=== PATIENT | female | born 1990 | race Caucasian/White ===

== ENCOUNTER 2016-07-23 05:24 | Outpatient (CLI) | payer SELFPAY ==
[2016-07-23 05:55] VITALS: BP 106/55
[2016-07-23] MEDS ORDERED: LACTATED RINGERS 500 ML IV ONE (06:36)
== END 2016-07-23 06:58 | disposition home or self-care (01) ==
LOC: TRG 05:24
PROVIDERS: ATTEND Obstetrics & Gynecology
DX: O62.9 Abnormality of forces of labor, unspecified (principal); Z3A.36 36 weeks gestation of pregnancy
CPT/HCPCS: 59025; J7120

== ENCOUNTER 2016-08-12 13:49 | Inpatient (IN) | payer OTHER ==
[2016-08-12] MEDS ORDERED: POLYCILLIN/NS 2 GM/100 ML 2 GM/100 ML BAG IV ONE (13:58)
[2016-08-12] MEDS ORDERED: LACTATED RINGERS 1,000 ML ONE (13:58)
[2016-08-12] MEDS ORDERED: PITOCin/NS 20 UNIT/1000ML DRIP 20,000 MILLIUNITS/1,000 ML BAG IV ONE (13:59)
[2016-08-12] MEDS ORDERED: CLEOCIN 900 MG/50 mL 900 MG/50 ML BAG IV ONE (14:04)
[2016-08-12] MEDS ORDERED: SUBLIMAZE ONE (14:28)
[2016-08-12] MEDS ORDERED: SUBLIMAZE IV ONE (14:33)
[2016-08-12 14:50] LABS: Hematocrit 40.8 % (30.3-42.9); Hemoglobin 13.9 gm/dl (10.1-14.3); Mean Corpuscular HGB Conc 34 % (30-34); Mean Corpuscular Hemoglobin 31 pg (28-32); Mean Corpuscular Volume 90 fl (79-97); Platelet Count 151 K/mm3 (140-440); Red Blood Count 4.51 M/mm3 (3.65-5.03); Red Cell Distribution Width 13.4 % (13.2-15.2); White Blood Count 10.4 K/mm3 (4.5-11.0)
[2016-08-12] MEDS ORDERED: CLEOCIN 900 MG/50 mL 900 MG/50 ML BAG IV SCH (15:00)
[2016-08-12] MEDS ORDERED: PITOCin/NS 20 UNIT/1000ML DRIP 20 UNITS/1,000 ML BAG IV SCH ×2 (15:00→17:00)
[2016-08-12] MEDS ORDERED: LACTATED RINGERS 1,000 ML IV SCH ×2 (15:00→17:00)
[2016-08-12] MEDS ORDERED: XYLOCAINE 2% INFILTRATI ONE ×2 (16:29→16:55)
[2016-08-12] MEDS ORDERED: ePHEDrine SULFATE IV PRN (16:55)
[2016-08-12] MEDS ORDERED: BRETHINE IVP PRN (16:55)
[2016-08-12] MEDS ORDERED: MINERAL OIL PO PRN (16:55)
[2016-08-12] MEDS ORDERED: BRETHINE SUB-Q PRN (16:55)
[2016-08-12] MEDS ORDERED: BENADRYL PO PRN (16:58)
[2016-08-12] MEDS ORDERED: NORCO 5/325 PO PRN (16:58)
[2016-08-12] MEDS ORDERED: PHENERGAN PR PRN (16:58)
[2016-08-12] MEDS ORDERED: TUCKS PAD TP PRN (16:58)
[2016-08-12] MEDS ORDERED: LANSINOH TP PRN (16:58)
[2016-08-12] MEDS ORDERED: DULCOLAX PR PRN (16:58)
[2016-08-12] MEDS ORDERED: MILK OF MAGNESIA PO PRN (16:58)
[2016-08-12] MEDS ORDERED: PITOCin/NS 30 UNIT/500ML 30 UNITS/500 ML BAG IV SCH (17:00)
[2016-08-12] MEDS ORDERED: SODIUM CHLORIDE FLUSH SYRINGE 10 ML IV NR (17:00)
--- NOTE | 2016-08-12 17:09 | Procedure Note ---
OB Delivery Note - Delivery Date of Delivery: 08/12/16 (1624) Surgeon: DILIP HOOKS Estimated blood loss: 200cc - Vaginal Delivery presentation: vertex Delivery position: OA Delivery induction: none Delivery augmentation: rupture of membranes Delivery monitor: external FHT, external uterine Route of delivery: Delivery placenta: spontaneous Delivery cord: nuchal cord, 3 umbilical vessels Episiotomy: none Delivery laceration: 1st degree Delivery repair: vicryl Anesthesia: local Delivery comments: of a live 7'3 female over a 1st degree labial laceration under IV pain control with Apgars of 8 and 9 at 1624 on 08/12/2016. Tight nuchal cord x 2 manually reduced on the perineum prior to delivery of the anterior shoulder. directly to maternal abd/chest, skin to skin contact. Spontaneous delivery of placenta complete and intact with Bhandari side presenting at 1634. Fundus is firm and midline located 4 below the U. Lochia is scant. Labial laceration repaired with 2-0 Vicryl under 2% Lidocaine. GBS prophylaxis x 1. Cord blood collected. - Infant A at 1 minute: 8 at 5 minutes: 9 Infant Gender: Female (7'3)
--- NOTE | 2016-08-12 17:14 | History and Physical Report ---
History of Present Illness Date of examination: 08/12/16 Date of admission: 08/12/16 13:49 Chief complaint: Intense Labor Pains History of present illness: Uncomplicated course at [facility], No care after 33 Weeks. Past History Past Medical History: no pertinent history Past Surgical History: no surgical history Family/Genetic History: diabetes (mother) Social history: no significant social history, - Obstetrical History Expected Date of Delivery: 08/16/16 Actual Gestation: 39 Week(s) 3 Day(s) : 2 Para: 1 Number of Living Children: 1 #1 Infant Gender: Male year: 2008 Birthweight: 3.317 kg Method of Delivery: Vaginal Gestational age at delivery: 37 Complications: none Medications and Allergies Allergies Allergy/AdvReac Type Severity Reaction Status Date / Time ampicillin Allergy Hives Verified 07/23/16 06:01 Home Medications Medication Instructions Recorded Confirmed Last Taken Type Pnv with Ca,No.72/Iron/FA [Pnv 10 mg PO QDAY 08/12/16 08/12/16 08/11/16 History Plus Multivit Tab] Active Meds: Active Medications Acetaminophen/Hydrocodone Bitart ([place] 5/325) 2 each PO Q6H PRN PRN Reason: Pain, Moderate (4-6) Bisacodyl (Dulcolax) 10 mg NV BID PRN PRN Reason: Constipation Diphenhydramine HCl (Benadryl) 25 mg PO Q6H PRN PRN Reason: Itching Clindamycin HCl (Cleocin 900 Mg/50 Ml) 900 mg in 50 mls @ 100 mls/hr IV Q8HR DOREEN PRN Reason: Protocol Last Admin: 08/12/16 14:20 Dose: 100 mls/hr Lactated Ringer's (Lactated Ringers) 1,000 mls @ 125 mls/hr IV DIRECT DOREEN Oxytocin/Sodium Chloride (Pitocin/Ns 20 Unit/1000ml Drip) 20 units in 1,000 mls @ 125 mls/hr IV DIRECT DOREEN Lactated Ringer's (Lactated Ringers) 1,000 mls @ 125 mls/hr IV DIRECT DOREEN Oxytocin/Sodium Chloride (Pitocin/Ns 20 Unit/1000ml Drip) 20 units in 1,000 mls @ 125 mls/hr IV DIRECT DOREEN Oxytocin/Sodium Chloride (Pitocin/Ns 30 Unit/500ml) 30 units in 500 mls @ 1 mls /hr IV TITR DOREEN; 1 MILLIUNITS/MIN PRN Reason: Protocol Ibuprofen (Motrin) 600 mg PO Q6H [facility] Influenza Virus Vaccine Quadrival (Fluarix Quad 2502-0738(36 Mos+)) 60 mcg IM .ONCE ONE Stop: 08/13/16 12:01 Magnesium Hydroxide (Milk Of Magnesia) 30 ml PO HS PRN PRN Reason: Constipation Mineral Oil (Mineral Oil) 30 ml PO QHS PRN PRN Reason: Constipation Multi-Ingredient Ointment (Lansinoh) 1 applic TP PRN PRN PRN Reason: Sore Nipples Multivitamins/Iron/Calcium ( Vitamin) 1 each PO QDAY [facility] Promethazine HCl (Phenergan) 25 mg NV Q6H PRN PRN Reason: Nausea And Vomiting Sodium Chloride (Sodium Chloride Flush Syringe 10 Ml) 10 ml IV PRN NR Stop: 08/13/16 16:59 [place]/Glycerin (Tucks Pad) 1 each TP PRN PRN PRN Reason: Hemorrhoid/cleansing/soothing - Vital Signs Vital signs: Vital Signs Pulse Pulse Ox 78 97 08/12/16 13:51 08/12/16 13:51 Temp Pulse Resp BP Pulse Ox 97.5 F L 75 18 114/68 100 08/12/16 14:31 08/12/16 17:04 08/12/16 14:31 08/12/16 17:04 08/12/16 14:31 - Physical Exam Breasts: Positive: normal Cardiovascular: Regular rate Lungs: Positive: Clear to auscultation, Normal air movement Abdomen: Positive: normal appearance, soft, normal bowel sounds Genitourinary (Female): Positive: normal external genitalia, normal perenium Uterus: Positive: enlarged Anus/Rectum: Positive: normal perianal skin - Obstetrical FHR: category 1 Uterine Contraction Monitor Mode: External Cervical Dilatation: 6 Cervical Effacement Percentage: 80 station: -1 Uterine Contraction Pattern: Regular Uterine Tone Measurement Phase: Contraction Uterine Contraction Intensity: Moderate Results Result Diagrams: 08/12/16 13:15 All other labs normal. Assessment and Plan A: IUP @39 3/7 Weeks Category I Tracing Active Labor GBS Unknown P: Admit to L&D per routine orders GBS prophylaxis
[2016-08-13] MEDS: MOTRIN PO SCH ×5 (00:09→23:00)
[2016-08-13 06:03] LABS: Hematocrit 37.2 % (30.3-42.9); Hemoglobin 12.8 gm/dl (10.1-14.3)
--- NOTE | 2016-08-13 08:55 | Progress Note ---
Assessment and Plan A: PPD # 1 stable P: Discharge in am Subjective - Subjective Date of service: 08/13/16 Principal diagnosis: Patient reports: appetite normal [place]: doing well Objective - Vital Signs Latest vital signs: Vital Signs Temp Pulse Pulse Resp BP BP Pulse Ox 08/13/16 04:35 98.6 F 80 18 120/63 08/13/16 00:00 98.4 F 72 18 113/60 08/12/16 19:30 98.0 F 70 18 117/68 08/12/16 18:34 67 90/50 08/12/16 17:49 74 108/62 08/12/16 17:34 74 113/66 08/12/16 17:19 70 105/62 08/12/16 17:04 75 114/68 08/12/16 16:49 70 115/66 08/12/16 14:31 97.5 F L 81 18 118/61 100 08/12/16 14:11 73 98 08/12/16 14:06 73 95 08/12/16 14:05 75 94 08/12/16 14:01 84 95 08/12/16 13:58 87 94 08/12/16 13:56 78 96 08/12/16 13:51 78 97 Intake and Output 08/12/16 08/13/16 08/13/16 22:59 06:59 14:59 Intake Total 240 120 Output Total 600 Balance 240 -480 Intake: Oral 240 120 Output: Urine 600 Void 600 Other: Total, Intake Amount 240 120 Total, Output Amount 600 # Voids Void 1 Estimated Blood Loss 200 - Exam Breasts: Present: deferred Cardiovascular: Present: Regular rate Lungs: Present: Clear to auscultation Abdomen: Present: soft Vulva: both: normal Uterus: Present: fundal height below umbilicus Extremities: Present: normal Deep Tendon Reflex Grade: Normal +2
--- NOTE | 2016-08-13 08:57 | Discharge Summary ---
Providers - Providers Date of Admission: 08/12/16 13:49 Date of discharge: 08/14/16 Attending physician: FAITH CARVAJAL MD Primary care physician: FAITH CARVAJAL MD Hospitalization Reason for admission: active labor Delivery: Episiotomy: none Laceration: none Incision: normal Other procedures: none complications: none Discharge diagnosis: IUP at term delivered baby: female Condition at discharge: Good Disposition: DISCHARGED TO HOME OR SELFCARE Plan - Provider Discharge Summary Activity: routine, no sex for 6 weeks, no heavy lifting 4 weeks, no strenuous exercise Diet: routine Instructions: routine Additional instructions: [] Smoking cessation referral if applicable(refer to patient education folder for contact #) [] Refer to [facility] Booklet Call your doctor immediately for: * Fever > 100.5 * Heavy vaginal bleeding ( >1 pad per hour) * Severe persistent headache * Shortness of breath * Reddened, hot, painful area to leg or breast * Drainage or odor from incision. * Keep incision clean and dry at all times and follow doctor's instructions regarding bathing/showering - Follow up plan Follow up: [facility] [Provider Group] - 6 Weeks
[2016-08-13] MEDS: PRENATAL VITAMIN PO SCH (09:40)
[2016-08-13] MEDS ORDERED: FLUARIX QUAD 2016-2017(36 MOS+) IM ONE (12:00)
[2016-08-14] MEDS: MOTRIN PO SCH ×2 (06:55→12:03)
[2016-08-14] MEDS: PRENATAL VITAMIN PO SCH (12:03)
[2016-08-14 17:11] VITALS: BP 100/52
== END 2016-08-14 17:00 | disposition home or self-care (01) | DRG 775 ==
LOC: EDBD 13:49 → LD 13:49 → OB 19:28
PROVIDERS: ADMIT Obstetrics & Gynecology; ATTEND Obstetrics & Gynecology
PROC: 10E0XZZ Delivery of Products of Conception, External Approach (ICD-10-PCS; principal; 2016-08-12)
PROC: 0HQ9XZZ Repair Perineum Skin, External Approach (ICD-10-PCS; 2016-08-12)
PROC: 00HU33Z Insertion of Infusion Device into Spinal Canal, Percutaneous Approach (ICD-10-PCS; 2016-08-12)
PROC: 3E0R3BZ Introduction of Anesthetic Agent into Spinal Canal, Percutaneous Approach (ICD-10-PCS; 2016-08-12)
DX: O69.1XX0 Labor and delivery complicated by cord around neck, with compression, not applicable or unspecified (principal); O70.0 First degree perineal laceration during delivery; Z3A.39 39 weeks gestation of pregnancy; Z37.0 Single live birth; Z88.1 Allergy status to other antibiotic agents; Z83.3 Family history of diabetes mellitus
CPT/HCPCS: 36415; 85014; 85018; 85027; 86850; 86900; 86901; 99211; G0463; J0290; J2590; J3010; J7120